=== PATIENT | female | born 1955 | race Caucasian/White ===

== ENCOUNTER → 2023-12-06 10:01 | Outpatient (REF) | payer MEDICARE, SELFPAY ==
[2023-12-06 11:17] LABS: Urine Albumin Trace (Neg - Trace); Urine Bilirubin Negative (Negative); Urine Character Clear (Clear); Urine Color Yellow; Urine Glucose 2+ (Negative); Urine Ketone Negative (Negative); Urine Leukocyte Negative (Negative); Urine Nitrite Negative (Negative); Urine Occult Blood Negative (Negative); Urine Urobilinogen Negative (Neg - 1+)
== END ==
LOC: OLABN 10:01
PROVIDERS: ATTENDING PHYSICIAN Student in an Organized Health Care Education/Training Program
DX: R34 Anuria and oliguria (principal)
CPT/HCPCS: 81003; 87086

== ENCOUNTER → 2024-01-03 11:59 | Outpatient (REF) | payer MEDICARE, SELFPAY ==
[2024-01-03 13:14] LABS: % Basophils 0.9 % (0-2); % Immature Granulocytes 0.4 % (0-0.5); % Lymphocytes 19.4 % (20.5-51.1); % Monocytes 8.4 % (1.7-9.3); % Neutrophils 64.9 % (42.2-75.2); Absolute Basophils 0.1 10^3/uL (0-0.2); Absolute Eosinophils 0.6 10^3/uL (0-0.7); Absolute Lymphocytes 2.1 10^3/uL (1.2-3.4); Absolute Monocytes 0.9 10^3/uL (0.1-0.6); Absolute Neutrophils 6.9 10^3/uL (1.4-6.5); Hematocrit 34.5 % (37.0-47.0); Hemoglobin 9.8 g/dL (12.0-16.0); Mean Corp Hgb Conc. 28.4 g/dL (33.0-37.0); Mean Corpuscular Hgb 21.3 pg (27.0-31.0); Mean Corpuscular Volume 74.8 fL (81.0-99.0); Nucleated Red Blood Cells % 0 %; Platelet Count 308 10^3/uL (130-400); Red Blood Cell Count 4.61 10^6/uL (4.20-5.40); Red Cell Dist. Width 19.1 % (11.5-14.5); White Blood Cell Count 10.7 10^3/uL (4.8-10.8)
[2024-01-03 13:42] LABS: Anisocytosis 1+; Hypochromasia Slight; Normal RBC Morphology No
[2024-01-03 13:57] LABS: Blood Urea Nitrogen 31 mg/dl (7-17); Calcium 8.9 mg/dl (8.4-10.2); Carbon Dioxide 27 mmol/L (22-30); Chloride 103 mmol/L (98-107); Glucose 82 mg/dl (70-99); Potassium 4.3 mmol/L (3.5-5.1); Sodium 140 mmol/L (135-145); eGFR 54.73
[2024-01-03 14:03] LABS: NT-proBNP 439 pg/ml
== END ==
LOC: OLABN 11:59
PROVIDERS: ATTENDING PHYSICIAN Student in an Organized Health Care Education/Training Program
DX: M62.81 Muscle weakness (generalized) (principal); R94.4 Abnormal results of kidney function studies; I50.42 Chronic combined systolic (congestive) and diastolic (congestive) heart failure
CPT/HCPCS: 36415; 80048; 83880; 85025

== ENCOUNTER → 2024-02-16 09:10 | Outpatient (REF) | payer MEDICARE, SELFPAY ==
[2024-02-16 10:46] LABS: ALT (SGPT) 22 U/L (0-35); AST (SGOT) 30 U/L (14-36); Albumin 3.9 g/dl (3.5-5.0); Alkaline Phosphatase 163 U/L (38-126); Direct Bilirubin 0.3 mg/dl (0.0-0.4); Total Bilirubin 0.5 mg/dl (0.2-1.3); Total Protein 7.8 g/dl (6.3-8.2)
[2024-02-16 11:13] LABS: TSH 3.86 uIU/ml (0.47-4.68)
== END ==
LOC: OLABN 09:10
PROVIDERS: ATTENDING PHYSICIAN Student in an Organized Health Care Education/Training Program
DX: I50.42 Chronic combined systolic (congestive) and diastolic (congestive) heart failure (principal); E61.2 Magnesium deficiency; M62.81 Muscle weakness (generalized)
CPT/HCPCS: 36415; 80076; 84443

== ENCOUNTER → 2024-02-18 08:45 | Outpatient (REF) | payer MEDICARE, SELFPAY ==
[2024-02-18 11:58] LABS: Glycohemoglobin (HgbA1c) 5.8 % (4.0-5.6)
== END ==
LOC: OLABN 08:45
PROVIDERS: ATTENDING PHYSICIAN Student in an Organized Health Care Education/Training Program
DX: E87.6 Hypokalemia (principal); I10 Essential (primary) hypertension; Z68.41 Body mass index [BMI] 40.0-44.9, adult; I48.91 Unspecified atrial fibrillation; E66.2 Morbid (severe) obesity with alveolar hypoventilation; Z79.899 Other long term (current) drug therapy
CPT/HCPCS: 36415; 83036

== ENCOUNTER → 2024-02-23 09:59 | Outpatient (REF) | payer MEDICARE, SELFPAY | LOC: WDC 09:59 | PROVIDERS: ATTENDING PHYSICIAN Student in an Organized Health Care Education/Training Program | DX: N64.53 Retraction of nipple (principal) | CPT/HCPCS: 76642; 77062; 77066 ==

== ENCOUNTER → 2024-03-08 08:39 | Outpatient (REF) | payer MEDICARE, SELFPAY ==
[2024-03-08 09:05] LABS: Hematocrit 34.8 % (37.0-47.0); Hemoglobin 9.7 g/dL (12.0-16.0); Mean Corp Hgb Conc. 27.9 g/dL (33.0-37.0); Mean Corpuscular Hgb 19.9 pg (27.0-31.0); Mean Corpuscular Volume 71.5 fL (81.0-99.0); Mean Platelet Volume 9.7 fL (7.4-10.4); Platelet Count 244 10^3/uL (130-400); Red Blood Cell Count 4.87 10^6/uL (4.20-5.40); Red Cell Dist. Width 20.6 % (11.5-14.5); White Blood Cell Count 8.6 10^3/uL (4.8-10.8)
[2024-03-08 09:39] LABS: ALT (SGPT) 18 U/L (0-35); AST (SGOT) 27 U/L (14-36); Albumin 3.5 g/dl (3.5-5.0); Alkaline Phosphatase 150 U/L (38-126); Blood Urea Nitrogen 32 mg/dl (7-17); Calcium 9.1 mg/dl (8.4-10.2); Carbon Dioxide 25 mmol/L (22-30); Chloride 106 mmol/L (98-107); Glucose 114 mg/dl (70-99); Potassium 4.4 mmol/L (3.5-5.1); Sodium 139 mmol/L (135-145); Total Bilirubin 0.5 mg/dl (0.2-1.3); Total Protein 7.4 g/dl (6.3-8.2); eGFR 54.73
[2024-03-08 09:44] LABS: NT-proBNP 533 pg/ml
[2024-03-08 10:24] LABS: Hypochromasia 1+; Normal RBC Morphology No
== END ==
LOC: OLABN 08:39
PROVIDERS: ATTENDING PHYSICIAN Student in an Organized Health Care Education/Training Program
DX: I50.42 Chronic combined systolic (congestive) and diastolic (congestive) heart failure (principal); E61.2 Magnesium deficiency
CPT/HCPCS: 36415; 80053; 83880; 85027

== ENCOUNTER → 2024-07-10 09:51 | Outpatient (REF) | payer MEDICARE, SELFPAY ==
[2024-07-10 14:11] LABS: % Basophils 0.8 % (0-2); % Eosinophils 5.6 % (0-6); % Immature Granulocytes 0.3 % (0-0.5); % Lymphocytes 13.8 % (20.5-51.1); % Monocytes 8.6 % (1.7-9.3); % Neutrophils 70.9 % (42.2-75.2); Absolute Basophils 0.1 10^3/uL (0-0.2); Absolute Eosinophils 0.6 10^3/uL (0-0.7); Absolute Lymphocytes 1.5 10^3/uL (1.2-3.4); Absolute Neutrophils 7.8 10^3/uL (1.4-6.5); Hematocrit 33.3 % (37.0-47.0); Mean Corpuscular Hgb 18.6 pg (27.0-31.0); Mean Corpuscular Volume 68.7 fL (81.0-99.0); Mean Platelet Volume 10.3 fL (7.4-10.4); Nucleated Red Blood Cells % 0 %; Platelet Count 261 10^3/uL (130-400); Red Blood Cell Count 4.85 10^6/uL (4.20-5.40); Red Cell Dist. Width 20.7 % (11.5-14.5); White Blood Cell Count 11.1 10^3/uL (4.8-10.8)
[2024-07-10 14:12] LABS: ALT (SGPT) 16 U/L (0-35); AST (SGOT) 26 U/L (14-36); Albumin 3.8 g/dl (3.5-5.0); Alkaline Phosphatase 147 U/L (38-126); Blood Urea Nitrogen 28 mg/dl (7-17); Calcium 8.9 mg/dl (8.4-10.2); Carbon Dioxide 25 mmol/L (22-30); Chloride 103 mmol/L (98-107); Glucose 88 mg/dl (70-99); Potassium 4.8 mmol/L (3.5-5.1); Sodium 143 mmol/L (135-145); Total Bilirubin 0.4 mg/dl (0.2-1.3); Total Protein 7.3 g/dl (6.3-8.2); eGFR 54.73
== END ==
LOC: OLABN 09:51
PROVIDERS: ATTENDING PHYSICIAN Student in an Organized Health Care Education/Training Program
DX: R05.9 Cough, unspecified (principal); R53.83 Other fatigue
CPT/HCPCS: 36415; 80053; 85025

== ENCOUNTER → 2024-10-03 09:27 | Outpatient (REF) | payer MEDICARE, SELFPAY ==
[2024-10-03 10:39] LABS: Blood Urea Nitrogen 27 mg/dl (7-17); Calcium 8.8 mg/dl (8.4-10.2); Carbon Dioxide 28 mmol/L (22-30); Chloride 104 mmol/L (98-107); Glucose 94 mg/dl (70-99); Potassium 4.7 mmol/L (3.5-5.1); Sodium 143 mmol/L (135-145); eGFR > 60.00
[2024-10-03 10:44] LABS: NT-proBNP 994 pg/ml
== END ==
LOC: OLABN 09:27
PROVIDERS: ATTENDING PHYSICIAN Student in an Organized Health Care Education/Training Program
DX: R60.9 Edema, unspecified (principal)
CPT/HCPCS: 36415; 80048; 83880

== ENCOUNTER → 2024-10-17 10:03 | Outpatient (REF) | payer MEDICARE, SELFPAY ==
[2024-10-17 10:50] LABS: HDL Cholesterol 65 mg/dl; LDL Cholesterol, Calculated 31 mg/dl; Total Cholesterol 111 mg/dl (50-199); Triglyceride 77 mg/dl (10-149); Very Low Density Lipoprotein 15 mg/dl (0-30)
== END ==
LOC: OLABN 10:03
PROVIDERS: ATTENDING PHYSICIAN Student in an Organized Health Care Education/Training Program
DX: E78.5 Hyperlipidemia, unspecified (principal)
CPT/HCPCS: 36415; 80061

== ENCOUNTER → 2024-11-04 08:33 | Outpatient (REF) | payer MEDICARE, SELFPAY ==
[2024-11-04 10:03] LABS: ALT (SGPT) 24 U/L (0-35); AST (SGOT) 32 U/L (14-36); Albumin 3.9 g/dl (3.5-5.0); Alkaline Phosphatase 116 U/L (38-126); Blood Urea Nitrogen 19 mg/dl (7-17); Calcium 8.9 mg/dl (8.4-10.2); Carbon Dioxide 35 mmol/L (22-30); Chloride 96 mmol/L (98-107); Glucose 98 mg/dl (70-99); Potassium 4.2 mmol/L (3.5-5.1); Sodium 141 mmol/L (135-145); Total Bilirubin 0.6 mg/dl (0.2-1.3); eGFR 54.39
== END ==
LOC: OLABN 08:33
PROVIDERS: ATTENDING PHYSICIAN Student in an Organized Health Care Education/Training Program
DX: M62.81 Muscle weakness (generalized) (principal); R53.82 Chronic fatigue, unspecified
CPT/HCPCS: 36415; 80053

== ENCOUNTER → 2024-12-07 11:09 | Outpatient (REF) | payer MEDICARE, SELFPAY ==
[2024-12-07 12:30] LABS: ALT (SGPT) 14 U/L (0-35); AST (SGOT) 28 U/L (14-36); Albumin 3.5 g/dl (3.5-5.0); Alkaline Phosphatase 123 U/L (38-126); Blood Urea Nitrogen 22 mg/dl (7-17); Calcium 8.8 mg/dl (8.4-10.2); Carbon Dioxide 31 mmol/L (22-30); Chloride 101 mmol/L (98-107); Glucose 89 mg/dl (70-99); Magnesium 2.3 mg/dl (1.6-2.3); Potassium 4.3 mmol/L (3.5-5.1); Sodium 138 mmol/L (135-145); Total Bilirubin 0.5 mg/dl (0.2-1.3); Total Protein 7.5 g/dl (6.3-8.2); eGFR 54.39
[2024-12-07 12:37] LABS: % Basophils 0.6 % (0-2); % Eosinophils 5.6 % (0-6); % Immature Granulocytes 0.3 % (0-0.5); % Lymphocytes 15.7 % (20.5-51.1); % Monocytes 9.3 % (1.7-9.3); % Neutrophils 68.5 % (42.2-75.2); Absolute Basophils 0.1 10^3/uL (0-0.2); Absolute Eosinophils 0.5 10^3/uL (0-0.7); Absolute Lymphocytes 1.5 10^3/uL (1.2-3.4); Absolute Monocytes 0.9 10^3/uL (0.1-0.6); Absolute Neutrophils 6.3 10^3/uL (1.4-6.5); Hematocrit 35.1 % (37.0-47.0); Hemoglobin 9.6 g/dL (12.0-16.0); Mean Corp Hgb Conc. 27.4 g/dL (33.0-37.0); Mean Corpuscular Hgb 20.1 pg (27.0-31.0); Mean Corpuscular Volume 73.4 fL (81.0-99.0); Nucleated Red Blood Cells % 0 %; Platelet Count 245 10^3/uL (130-400); Red Blood Cell Count 4.78 10^6/uL (4.20-5.40); Red Cell Dist. Width 25.2 % (11.5-14.5); White Blood Cell Count 9.3 10^3/uL (4.8-10.8)
[2024-12-07 13:02] LABS: Urine Albumin 2+ (Neg - Trace); Urine Bilirubin Negative (Negative); Urine Character Clear (Clear); Urine Color Yellow; Urine Glucose 3+ (Negative); Urine Ketone Negative (Negative); Urine Leukocyte Negative (Negative); Urine Nitrite Negative (Negative); Urine Occult Blood Negative (Negative); Urine Specific Gravity 1.015 (<1.030); Urine Urobilinogen Negative (Neg - 1+)
[2024-12-07 13:09] LABS: Urine Bacteria Moderate (Negative); Urine Calcium Oxalate Crystals Present; Urine Red Blood Cell 0-2 /HPF (0-2); Urine Squamous Cell 21-25 /LPF (Few); Urine White Cell 0-2 /HPF (0-5)
== END ==
LOC: OLABN 11:09
PROVIDERS: ATTENDING PHYSICIAN Student in an Organized Health Care Education/Training Program
DX: M62.81 Muscle weakness (generalized) (principal); R53.82 Chronic fatigue, unspecified; N39.3 Stress incontinence (female) (male)
CPT/HCPCS: 36415; 80053; 81003; 81015; 83735; 85025; 87086

== ENCOUNTER → 2024-12-08 21:30 | Outpatient (REF) | payer MEDICARE, SELFPAY ==
[2024-12-09 09:29] LABS: Urine Albumin 2+ (Neg - Trace); Urine Bilirubin Negative (Negative); Urine Character Clear (Clear); Urine Color Yellow; Urine Glucose 3+ (Negative); Urine Ketone Negative (Negative); Urine Leukocyte Negative (Negative); Urine Nitrite Negative (Negative); Urine Occult Blood Negative (Negative); Urine Specific Gravity 1.015 (<1.030); Urine Urobilinogen Negative (Neg - 1+)
[2024-12-09 10:20] LABS: Urine Bacteria Many (Negative); Urine Calcium Oxalate Crystals Present; Urine Red Blood Cell 0-2 /HPF (0-2); Urine Squamous Cell >30 /LPF (Few); Urine White Cell 0-2 /HPF (0-5)
== END ==
LOC: OLABN 21:30
PROVIDERS: ATTENDING PHYSICIAN Student in an Organized Health Care Education/Training Program
DX: M62.81 Muscle weakness (generalized) (principal); R53.82 Chronic fatigue, unspecified; N39.3 Stress incontinence (female) (male)
CPT/HCPCS: 81003; 81015; 87086

== ENCOUNTER → 2024-12-11 10:22 | Outpatient (REF) | payer MEDICARE, SELFPAY ==
[2024-12-11 11:10] LABS: Urine Albumin 2+ (Neg - Trace); Urine Bilirubin Negative (Negative); Urine Character Slightly Cloudy (Clear); Urine Color Yellow; Urine Glucose 3+ (Negative); Urine Ketone Negative (Negative); Urine Leukocyte Negative (Negative); Urine Nitrite Negative (Negative); Urine Occult Blood Negative (Negative); Urine Urobilinogen Negative (Neg - 1+)
[2024-12-11 11:17] LABS: Urine Bacteria Few (Negative); Urine Squamous Cell 0-2 /LPF (Few); Urine White Cell 0-2 /HPF (0-5)
[2024-12-11 11:18] LABS: Urine Red Blood Cell 0-2 /HPF (0-2)
== END ==
LOC: OLABN 10:22
PROVIDERS: ATTENDING PHYSICIAN Student in an Organized Health Care Education/Training Program
DX: M62.81 Muscle weakness (generalized) (principal); R53.82 Chronic fatigue, unspecified; N39.3 Stress incontinence (female) (male)
CPT/HCPCS: 81003; 81015; 87086

== ENCOUNTER → 2025-07-03 10:23 | Outpatient (REF) | payer MEDICARE, SELFPAY ==
[2025-07-03 11:36] LABS: Hematocrit 44.7 % (37.0-47.0); Hemoglobin 13.8 g/dL (12.0-16.0); Mean Corp Hgb Conc. 30.9 g/dL (33.0-37.0); Mean Corpuscular Volume 93.9 fL (81.0-99.0); Nucleated Red Blood Cells % 0 %; Platelet Count 161 10^3/uL (130-400); Red Cell Dist. Width 14.2 % (11.5-14.5)
== END ==
LOC: OLABN 10:23
PROVIDERS: ATTENDING PHYSICIAN Student in an Organized Health Care Education/Training Program
DX: D50.9 Iron deficiency anemia, unspecified (principal); E87.6 Hypokalemia
CPT/HCPCS: 36415; 85025

== ENCOUNTER → 2025-07-04 10:41 | Outpatient (REF) | payer MEDICARE, SELFPAY ==
[2025-07-04 11:23] LABS: Hematocrit 42.9 % (37.0-47.0); Hemoglobin 13.4 g/dL (12.0-16.0); Mean Corp Hgb Conc. 31.2 g/dL (33.0-37.0); Mean Corpuscular Volume 92.9 fL (81.0-99.0); Platelet Count 177 10^3/uL (130-400); Red Cell Dist. Width 14.2 % (11.5-14.5)
[2025-07-04 11:31] LABS: ALT (SGPT) 79 U/L (0-35); AST (SGOT) 55 U/L (14-36); Albumin 3.3 g/dl (3.5-5.0); Alkaline Phosphatase 108 U/L (38-126); Blood Urea Nitrogen 24 mg/dl (7-17); Calcium 8.3 mg/dl (8.4-10.2); Carbon Dioxide 29 mmol/L (22-30); Chloride 105 mmol/L (98-107); Glucose 74 mg/dl (70-99); Potassium 3.9 mmol/L (3.5-5.1); Sodium 138 mmol/L (135-145); Total Protein 6.5 g/dl (6.3-8.2); eGFR > 60.00
== END ==
LOC: OLABN 10:41
PROVIDERS: ATTENDING PHYSICIAN Student in an Organized Health Care Education/Training Program
DX: M62.81 Muscle weakness (generalized) (principal); D50.9 Iron deficiency anemia, unspecified
CPT/HCPCS: 36415; 80053; 83880; 85027

== ENCOUNTER → 2025-08-23 10:47 | Outpatient (REF) | payer MEDICARE, SELFPAY ==
[2025-08-23 12:39] LABS: Blood Urea Nitrogen 27 mg/dl (7-17)
== END ==
LOC: OLABN 10:47
PROVIDERS: ATTENDING PHYSICIAN Student in an Organized Health Care Education/Training Program
DX: R22.1 Localized swelling, mass and lump, neck (principal)
CPT/HCPCS: 36415; 82565; 84520

== ENCOUNTER → 2025-09-03 14:34 | Outpatient (REF) | payer MEDICARE, SELFPAY | LOC: RAD 14:34 | PROVIDERS: ATTENDING PHYSICIAN Student in an Organized Health Care Education/Training Program | DX: R22.1 Localized swelling, mass and lump, neck (principal) | CPT/HCPCS: 70491; Q9967 ==

== ENCOUNTER → 2025-10-16 11:32 | Outpatient (REF) | payer MEDICARE, OTHER, SELFPAY ==
[2025-10-16 12:50] LABS: HDL Cholesterol 48 mg/dl; LDL Cholesterol, Calculated 57 mg/dl; Very Low Density Lipoprotein 23 mg/dl (0-30)
== END ==
LOC: OLABN 11:32
PROVIDERS: ATTENDING PHYSICIAN Student in an Organized Health Care Education/Training Program
DX: E78.5 Hyperlipidemia, unspecified (principal)
CPT/HCPCS: 36415; 80061